=== PATIENT | female | born 1950 | race Caucasian/White ===

== ENCOUNTER 2019-01-02 20:14 | Emergency (ER) | payer MEDICARE, OTHER ==
[~2019-01-02] VITALS: Ht 147.3 cm; Wt 49.4 kg
[~2019-01-02 20:14] MED LIST: ARTIFICIAL TEAR15 ML RIGHT EYE; CALCIUM600 M1 PO; KLONOPIN0.5 MG ORAL; NEURONTIN300 MG ORAL; PROAIR HFA8.5 GM INH; RANITIDINE HCL150 MG ORAL; TRAMADOL HCL50 MG ORAL
--- NOTE | 2019-01-02 20:26 | NUR ---
ED Nurse Note: pt not in the waiting room.
[2019-01-02 20:35] VITALS: BP 140/83
--- NOTE | 2019-01-02 20:35 | NUR ---
ED Nurse Note: Patient walked in to ER due to bug bite on left arm with pain and tenderness. As per patient, she got bitten yesterday and got worsen today. No discharges noted. Afebrile. VSS. Accompanied by family member.
[2019-01-02 21:15] VITALS: BP 140/83
[2019-01-02] MEDS ORDERED: Tetanus/Diptheria/Pertussis IM ONE (21:15)
--- NOTE | 2019-01-02 21:15 | NUR ---
ED Nurse Note: Pt cleared by ERMD for discharge. DC instructions/prescription was given and explained to pt and verbalized understanding of teachings. All medical deviecs such as ID band removed. Pt is AAO x4, ambulatory and left with all personal belongings. Accompanied by .
[2019-01-02] MEDS ORDERED: CLINDAMYCIN HC300 MG ORAL (21:18)
--- NOTE | 2019-01-02 21:19 | Emergency Room Report ---
History of Present Illness General Chief Complaint: Skin Rash/Abscess Source: Patient, Medical Record Present Illness HPI This is a 68-year-old female with history of asthma patient presents with chief complaint of a bug bite to her left forearm. She noticed some redness and a bump there yesterday. She used a pumice stone to rub it off. Now is more tender and red. Her nephew is a doctor and told her to come to the ER for tetanus shot. She started to taking amoxicillin. No fever chills but no nausea no vomiting. No drainage. Did not see anything biting or stinging her. No other complaint. Allergies: Coded Allergies: CODEINE (Verified Allergy, Unknown, 12/12/14) Patient History Past Medical History: see triage record, old chart reviewed, asthma Past Surgical History: none Pertinent Family History: none Social History: Denies: smoking Reviewed Nursing Documentation: PMH: Agreed; PSxH: Agreed Nursing Documentation-PMH Past Medical History: No History, Except For Hx Cardiac Problems: No Hx Asthma: Yes Hx Cancer: No Hx Gastrointestinal Problems: Yes Hx Neurological Problems: No Review of Systems Eye: Denies: eye pain, blurred vision ENT: Denies: ear pain, nose congestion, throat swelling Respiratory: Denies: cough, shortness of breath Cardiovascular: Denies: chest pain, palpitations Gastrointestinal: Denies: abdominal pain, diarrhea, nausea, vomiting Musculoskeletal: Denies: back pain, joint pain Skin: Denies: rash Neurological: Denies: headache, numbness Endocrine: Denies: increased thirst, increased urine Hematologic/Lymphatic: Denies: easy bruising All Other Systems: negative except mentioned in HPI Physical Exam Vital Signs Date Time Temp Pulse Resp B/P (MAP) Pulse Ox O2 Delivery O2 Flow Rate FiO2 01/02/19 20:31 98.1 84 18 140/83 (102) 98 Room Air Vitals normal Sp02 EP Interpretation: reviewed, normal General Appearance: well appearing, no apparent distress, alert Head: normocephalic, atraumatic Eyes: bilateral eye PERRL, bilateral eye EOMI ENT: hearing grossly normal, normal pharynx Neck: full range of motion, supple, no meningismus Respiratory: chest non-tender, lungs clear, normal breath sounds Cardiovascular #1: regular rate, rhythm, no murmur Gastrointestinal: normal bowel sounds, non tender, no mass, no organomegaly, no bruit, non-distended Musculoskeletal: back normal, gait/station normal, normal range of motion, other - Left forearm: On the volar aspect of the midforearm, there is a 2 x 4 area of erythema. No crepitance. No abscess. Psychiatric: mood/affect normal Medical Decision Making Diagnostic Impression: Primary Impression: Cellulitis of forearm, left ER Course Patient with cellulitis of forearm. No evidence of any abscess or necrotizing fasciitis. Will discharge home. Last Vital Signs Date Time Temp Pulse Resp B/P (MAP) Pulse Ox O2 Delivery O2 Flow Rate FiO2 01/02/19 20:31 98.1 84 18 140/83 (102) 98 Room Air Status: improved Disposition: HOME, SELF-CARE Condition: Stable Scripts Clindamycin Hcl (CLINDAMYCIN HCL) 300 Mg Capsule 300 MG ORAL THREE TIMES A DAY, #21 CAP Prov: Markie Chase MD 01/02/19 Additional Instructions: Keep wound clean. Clean first with hydroperoxide and then apply antibiotic ointment. Stop amoxicillin. Follow-up with your doctor in 7 days. Return if worse. Markie Chase MD Jan 02, 2019 21:19
== END 2019-01-02 21:15 | disposition home or self-care (01) ==
LOC: EMR 21:08
DX: L03.114 Cellulitis of left upper limb (principal); Z88.6 Allergy status to analgesic agent; Z23 Encounter for immunization
CPT/HCPCS: 90471; 90715; 99282

== ENCOUNTER 2019-04-08 09:11 | Emergency (ER) | payer MEDICARE, OTHER ==
[~2019-04-08] VITALS: Ht 137.2 cm; Wt 49.9 kg
[~2019-04-08 09:11] MED LIST changes: +CLINDAMYCIN HC300 MG ORAL
--- NOTE | 2019-04-08 09:16 | NUR ---
ED Nurse Note: CALLED FOR TRIAGE. PT NOT FOUND IN THE WAITING ROOM.
--- NOTE | 2019-04-08 09:36 | NUR ---
ED Nurse Note: pt ambulated to ED d/t cough x 2 months with occasional mucous secretions; verbalized "I am having asthma attack". Pt on RA, NAD. Afebrile on triage. Placed on bed and gown. Dr. Emmanuel on bedside.
[2019-04-08 09:38] VITALS: BP 135/66
--- NOTE | 2019-04-08 09:55 | Emergency Room Report ---
History of Present Illness General Chief Complaint: Upper Respiratory Illness Source: Patient Present Illness HPI Patient is a 69-year-old female who presents after increased congestion and cough. Gradual onset of symptoms over the past 2 months.. Previous recent visit to her tie bucker. She had recently been started on Levaquin. She had previously history of chronic lung disease and had CT imaging which showed some interstitial changes consistent with interstitial pneumonia versus interstitial lung disease. She had previous been taking steroids as well as inhalers. Had recently finished several courses of antibiotics including azithromycin. Denies any fever. Had progressive cough. CT imaging also showed some calcifications of cardiac arteries. Allergies: Coded Allergies: CODEINE (Verified Allergy, Unknown, 12/12/14) Patient History Past Medical History: see triage record Reviewed Nursing Documentation: PMH: Agreed; PSxH: Agreed Nursing Documentation-PM Past Medical History: No History, Except For Hx Cardiac Problems: No Hx Asthma: Yes Hx Cancer: No Hx Gastrointestinal Problems: Yes Hx Neurological Problems: No Review of Systems All Other Systems: negative except mentioned in HPI Physical Exam Vital Signs Date Time Temp Pulse Resp B/P (MAP) Pulse Ox O2 Delivery O2 Flow Rate FiO2 04/08/19 09:26 98.1 104 20 135/66 (89) 95 Room Air Sp02 EP Interpretation: reviewed, normal General Appearance: normal inspection, alert, GCS 15, thin, Chronically Ill Head: atraumatic ENT: normal ENT inspection, hearing grossly normal, normal voice Neck: normal inspection, full range of motion, supple, no bony tend Respiratory: normal inspection, lungs clear, normal breath sounds, no respiratory distress, no retraction, no wheezing Cardiovascular #1: regular rate, rhythm, no edema Gastrointestinal: normal inspection, normal bowel sounds, non tender, soft, no guarding, no hernia Genitourinary: no CVA tenderness Musculoskeletal: normal inspection, back normal, normal range of motion Neurologic: alert, motor strength/tone normal, web project manager III-XII nml as tested, oriented x3, responsive, speech normal, normal inspection Psychiatric: normal inspection, judgement/insight normal, mood/affect normal Medical Decision Making Diagnostic Impression: Primary Impression: Interstitial lung disease ER Course Patient present for chronic cough. Differential diagnosis include was not limited to pneumonia, interstitial lung disease, congestive heart failure among others. Because of complexity of patient's case laboratory tests and imaging studies were ordered.Patient's laboratory testing did show some evidence of elevated sed rate. Patient has chronic interstitial lung disease and declined chest x-ray as she has had recent CT imaging which showed some chronic lung findings. Apparently she had recently finished both azithromycin as well as another course of antibiotics and is currently on Levaquin. Patient was advised to follow-up with her primary care physician. The patient is advised to follow up with primary care doctor in 1-2 days. Patient is advised to return if any worsening condition or if any changes in status that are concerning. This report is dictated with [employer] agent software which may occasionally lead to discrepancies related to use of this software. Last Vital Signs Date Time Temp Pulse Resp B/P (MAP) Pulse Ox O2 Delivery O2 Flow Rate FiO2 04/08/19 09:38 98.1 105 20 135/66 95 Room Air Status: improved Disposition: HOME, SELF-CARE Condition: Stable Scripts Benzonatate* (TESSALON LEON*) 100 Mg Capsule 100 MG ORAL THREE TIMES A DAY, #30 PERLE Prov: Kingston Emmanuel MD 04/08/19 Referrals: Ganesh Magallon MD (PCP) Kingston Emmanuel MD Apr 08, 2019 09:55
[2019-04-08] MEDS ORDERED: Albuterol/Ipratropium 3ml neb HHN ONE (10:00)
--- NOTE | 2019-04-08 10:01 | NUR ---
ED Nurse Note: RT on bedside.
--- NOTE | 2019-04-08 10:12 | NUR ---
ED Nurse Note: Pt refused chest x-ray. Dr. Cholo gallagher.
[2019-04-08 10:13] LABS: BASOPHILS % (AUTO) 0.5 % (0.0-2.0); EOSINOPHILS % (AUTO) 1.1 % (0.0-3.0); HEMATOCRIT 33.3 % (37.0-47.0); HEMOGLOBIN 11.1 G/DL (12.0-16.0); LYMPHOCYTES % (AUTO) 14.7 % (20.0-45.0); MEAN CORPUSCULAR VOLUME 77 FL (80-99); NEUTROPHILS % (AUTO) 76.6 % (45.0-75.0); PLATELET COUNT 457 K/UL (150-450); RED BLOOD COUNT 4.32 M/UL (4.20-5.40)
[2019-04-08 10:20] LABS: ANION GAP 7 mmol/L (5-15); BLOOD UREA NITROGEN 21 mg/dL (7-18); CALCIUM 9.6 MG/DL (8.5-10.1); CARBON DIOXIDE 28 MMOL/L (21-32); CHLORIDE 106 MMOL/L (98-107); CREATININE 0.9 MG/DL (0.55-1.30); POTASSIUM 4.2 MMOL/L (3.5-5.1); SODIUM 141 MMOL/L (136-145)
[2019-04-08 10:24] LABS: ALANINE AMINOTRANSFERASE 19 U/L (12-78); ALBUMIN 2.6 G/DL (3.4-5.0); ALBUMIN/GLOBULIN RATIO 0.6 (1.0-2.7); ALKALINE PHOSPHATASE 63 U/L (46-116); ASPARTATE AMINO TRANSFERASE 15 U/L (15-37); BILIRUBIN,TOTAL 0.3 MG/DL (0.2-1.0)
--- NOTE | 2019-04-08 10:43 | NUR ---
ED Nurse Note: Obtained urine sample; specimen sent to labs.
[2019-04-08] MEDS ORDERED: FLOVENT2 PUFFS INH (10:48)
[2019-04-08] MEDS ORDERED: VITAMIN C500 M1 ORAL (10:48)
[2019-04-08] MEDS ORDERED: FISH OIL CAP1000 MG ORAL (10:48)
[2019-04-08] MEDS ORDERED: ASPIR 8181 MG ORAL (10:48)
[2019-04-08] MEDS ORDERED: TEGRETOL200 MG PO (10:48)
[2019-04-08 10:50] VITALS: BP 110/55
[2019-04-08 10:52] LABS: APPEARANCE,URINE SLIGHTLY CLOUDY; BILIRUBIN, URINE NEGATIVE (NEGATIVE); GLUCOSE, URINE (UA) NEGATIVE (NEGATIVE); KETONES,URINE 1+ (NEGATIVE); LEUKOCYTE ESTERASE ,URINE 1+ (NEGATIVE); NITRITE,URINE NEGATIVE (NEGATIVE); PH,URINE 5 (4.5-8.0); PROTEIN,URINE 2+ (NEGATIVE); UROBILINOGEN,URINE NORMAL MG/DL (0.0-1.0)
[2019-04-08] MEDS ORDERED: TESSALON PERLE100 MG ORAL (10:55)
[2019-04-08 11:00] LABS: COLOR,URINE YELLOW
[2019-04-08 11:22] VITALS: BP 110/55
--- NOTE | 2019-04-08 11:22 | NUR ---
ER DISCHARGE NOTE: Pt is cleared to be discharged per ERMD, pt is aox4, on room air, with stable vital signs. pt was given dc and prescription instructions, pt was able to verbalize understanding, pt id band and iv site removed without complications. pt is able to ambulate with steady gait. pt took all belongings. Pt left ED accompanied by spouse
== END 2019-04-08 11:22 | disposition home or self-care (01) ==
LOC: EMR 09:35
DX: R05 Cough (principal); Z88.6 Allergy status to analgesic agent
CPT/HCPCS: 36415; 80053; 81001; 84484; 85025; 85651; 86710; 93005; 99284; J7620